=== PATIENT | female | born 2000 | race African-American/Black ===

== ENCOUNTER 2021-02-10 18:53 | Emergency (ER) | payer OTHER, SELFPAY ==
--- NOTE | 2021-02-10 18:56 | ED.GENADULT ---
HPI - General Adult General Chief complaint: Urogenital-Female Stated complaint: Vaginal Discharge Time Seen by Provider: 02/10/21 18:56 Source: patient Mode of arrival: ambulatory Limitations: no limitations History of Present Illness HPI narrative: 20-year-old female patient presents to the [facility] with complaints of vaginal itching and discharge for the past 3 days. Patient states the today when she wiped the discharge had a little pink-tinged to it. Patient states her last menstrual period was January 25. Patient states she does have unprotected sex but only with 1 partner. Patient states she is on control denies or breast-feeding at this time. Patient states she fully got tested for STDs last month and came up negative for everything and states she has not changed her partner since then. Patient has no concerns for STDs today. Related Data Allergies Allergy/AdvReac Type Severity Reaction Status Date / Time No Known Allergies Allergy Verified 02/10/21 19:06 Review of Systems Review of Systems: Narrative: CONSTITUTIONAL: Denies fever, chills, or sweats. EYES: Denies visual changes, redness, or discharge. ENT: Denies rhinorrhea, congestion, sore throat, or otalgia. CARDIOVASCULAR: Denies chest pain, palpitations, or edema. RESPIRATORY: Denies cough or dyspnea. GASTROINTESTINAL: Denies abdominal pain, nausea, vomiting, or diarrhea. GENITOURINARY: Denies dysuria or hematuria. Positive vaginal itching and discharge x3 days SKIN: Denies rash or itching. MUSCULOSKELETAL: Denies back pain, joint pain, or myalgia. NEUROLOGIC: Denies headache, numbness, or weakness. PSYCHIATRIC: Denies anxiety or depression. Exam Narrative: Exam Narrative: GENERAL: Well-appearing, well-nourished, and in no acute distress. HEAD: Normocephalic, atraumatic. EYES: PERRLA and EOMI. ENT: Nares clear, no rhinorrhea or epistaxis. Mucous membranes moist. NECK: Supple. No lymphadenopathy CHEST: Clear to auscultation. No respiratory distress. HEART: Regular rate and rhythm. No murmur heard. Normal peripheral pulses. ABDOMEN: Soft, nontender, nondistended, normal active bowel sounds. : Normal external female genitalia. OS is closed. No adnexal fullness or TTP. No CVA tenderness to percussion. There is some white stringy and blood-tinged discharge noted on exam. The discharge was swabbed with an E swab and sent for culture to test for bacterial vaginosis. EXTREMITIES: Normal range of motion. No edema. SKIN: Warm, dry, no rash. NEURO: No focal deficits. Alert and oriented x3. Course Vital Signs Vital signs: Vital Signs Temperature 36.3 C L 02/10/21 19:08 Pulse Rate 74 02/10/21 19:08 Respiratory Rate 20 02/10/21 19:08 Blood Pressure 130/73 02/10/21 19:08 Pulse Oximetry 100 02/10/21 19:08 Temperature 36.3 C L 02/10/21 19:08 Pulse Rate 74 02/10/21 19:08 Respiratory Rate 20 02/10/21 19:08 Blood Pressure 130/73 02/10/21 19:08 Pulse Oximetry 100 02/10/21 19:08 Vital signs reviewed Medical Decision Making Differential Diagnosis Differential Diagnosis: Differential diagnosis: Uncomplicated lower UTI, uncomplicated UTI, pyelonephritis gonorrhea, chlamydia, Trichomonas, bacterial vaginosis, herpes, HIV, yeast infection, urinary tract infection. Plan of care for patient is to collect a urine specimen and assess for urinary tract infection to a test. We will also do a vaginal exam on the patient to assess the discharge. Patient does not want to be tested for STDs today but we still might test her for bacterial vaginosis and assess her for a yeast infection. Vital Signs Vital Signs: Vital Signs Temperature 36.3 C L 02/10/21 19:08 Pulse Rate 74 02/10/21 19:08 Respiratory Rate 20 02/10/21 19:08 Blood Pressure 130/73 02/10/21 19:08 Pulse Oximetry 100 02/10/21 19:08 Temperature 36.3 C L 02/10/21 19:08 Pulse Rate 74 02/10/21 19:08 Respiratory Rate 20 02/10/21 19:08 Blood
[2021-02-10 19:08] VITALS: BP 130/73; PULSE 74; RESP 20; TEMP 36.3; O2SAT 100
--- NOTE | 2021-02-10 19:44 | PC.NURSE ---
vag exam done by living supervisor and vag. culture obtained for bv.
== END 2021-02-10 19:48 | disposition home or self-care (01) ==
PROVIDERS: Emergency Provider Nurse Practitioner Family
DX: N76.0 Acute vaginitis (principal); B37.3 Candidiasis of vulva and vagina
CPT/HCPCS: 81003; 81025; 87070; 99204; G0463

== ENCOUNTER → 2021-11-21 08:58 | Outpatient (CLI) | payer OTHER, SELFPAY ==
--- NOTE | ~2021-11-21 | US_ITS ---
EXAMINATION: US OB transvaginal DATE: 11/21/2021 09:24 INDICATION: Uncertain dates. . TECHNIQUE: Real-time transvaginal pelvic ultrasound was performed. COMPARISON: None. FINDINGS: The uterus measures 8.6 x 5.0 x 6.3 cm. There is an intrauterine gestational sac. A yolk sac is ident ified. The crown rump length measures 2 mm, which correlates with an estimated gestational age of 5 weeks and 5 day(s) (+/-) 4 day(s). heart motion is identified measuring 116 beats per min oli (bpm) by M-mode Doppler. The right ovary measures 4.7 x 2.4 x 4.1 cm. The left ovary measures 4.1 x 2.2 x 2.8 cm. There is no free fluid in the pelvis. IMPRESSION: 1. Single living intrauterine gestation with estimated date of delivery of 07/19/2022. Reviewed, dictated and finalized at location A. [employer]GER IMPRESSION: 1. Single living intrauterine gestation with estimated date of delivery of 06/23.
== END ==
PROVIDERS: Visit Provider Nurse Practitioner
DX: Z36.87 Encounter for antenatal screening for uncertain dates (principal)
CPT/HCPCS: 76817

== ENCOUNTER 2025-07-06 09:35 | Outpatient (CLI) | payer OTHER, SELFPAY ==
--- NOTE | ~2025-07-06 | US_ITS ---
EXAMINATION: US OB transvaginal DATE: 07/06/2025 10:13 INDICATION: Spotting in first trimester. TECHNIQUE: Real-time transvaginal pelvic ultrasound was performed. COMPARISON: None. FINDINGS: The uterus measures 9.6 x 6.3 x 7.1 cm. There is an intrauterine gestational sac with mean diameter of 2.6 cm. This size correlates with an estimated gestational age of 7 weeks and 4 days. A yolk sac is mild identified. There is a 3 mm mass in the gestational sac that is indeterminate for a pole. If this finding is a pole, it correlates with an estimated gestational age of 5 weeks and 6 day(s). heart motion is not identified, which is normal at this size. There is a 4.0 x 0.8 x 2.0 cm subchorionic hematoma. The right ovary measures 3.9 x 2.7 x 2.9 cm. The left ovary is not visualized. There is no free fluid in the pelvis. IMPRESSION: 1. Intrauterine gestation with possible pole. The lack of a visible yolk sac is not reassuring. 2. Subchorionic hematoma. Reviewed, dictated and finalized at location E.
== END 2025-07-06 09:36 | disposition home or self-care (01) ==
LOC: MICIMG 09:36
PROVIDERS: PCP Obstetrics & Gynecology Gynecology; Visit Provider Obstetrics & Gynecology Gynecology
DX: O26.851 Spotting complicating pregnancy, first trimester (principal); Z3A.00 Weeks of gestation of pregnancy not specified
CPT/HCPCS: 76817

== ENCOUNTER 2025-07-23 15:28 | Outpatient (CLI) | payer OTHER, SELFPAY ==
--- NOTE | ~2025-07-23 | US_ITS ---
Ultrasound of the pelvis Indication: Subchorionic hematoma 1st trimester Comparison: 07/06/2025 Technique: [place]-scale color Doppler sonographic images were obtained FINDINGS: The uterus is anteverted 10.7 x 6.6 x 7.2 cm. There is an intrauterine gestational sac identified with a possible yolk sac and questionable pole, no cardiac activity identified, mean sac diameter 3.3 cm Right ovary 3.2 x 2.4 x 2.6 cm with a dominant follicle 1.8 x 1.6 cm. Left ovary 3.1 x 1.9 x 2.1 cm, no adnexal mass, normal flow. IMPRESSION: Intrauterine gestational sac detailed above. Probable pole without significant change compared to the prior exam, findings probably represent failed . Reviewed, dictated and finalized at location P. IMPRESSION: Intrauterine gestational sac detailed above. Probable pole wi thout significant change compared to the prior exam, findings probably represen t failed .
== END 2025-07-23 15:29 | disposition home or self-care (01) ==
LOC: MICIMG 15:28
PROVIDERS: PCP Obstetrics & Gynecology Gynecology; Visit Provider Obstetrics & Gynecology Gynecology
DX: O36.8910 Maternal care for other specified fetal problems, first trimester, not applicable or unspecified (principal); O26.851 Spotting complicating pregnancy, first trimester; Z3A.00 Weeks of gestation of pregnancy not specified
CPT/HCPCS: 76817